=== PATIENT | female | born 1970 ===

== ENCOUNTER 2018-05-20 16:33 | Outpatient (CLI) | payer OTHER | END 2018-05-20 17:21 | disposition home or self-care (01) | LOC: RAD 16:33 | DX: M05.89 Other rheumatoid arthritis with rheumatoid factor of multiple sites (principal) ==

== ENCOUNTER 2018-08-05 11:09 | Emergency (ER) | payer OTHER ==
[~2018-08-05] VITALS: Ht 162.6 cm; Wt 57.6 kg
[2018-08-05] MEDS ORDERED: AVAPRO75 MG (14:59)
[2018-08-05] MEDS ORDERED: MELOXICAM7.5 MG (15:01)
[2018-08-05] MEDS ORDERED: MEDROLPACK (15:02)
[2018-08-05] MEDS ORDERED: FOLIC ACID1 MG (15:03)
== END 2018-08-05 19:34 | disposition home or self-care (01) ==
LOC: ER 11:09
DX: K59.09 Other constipation (principal)